=== PATIENT | female | born 1985 | race Two or more races ===

== ENCOUNTER 2018-09-21 17:28 | Emergency (ER) | payer OTHER ==
[~2018-09-21] VITALS: Ht 165.1 cm; Wt 70.3 kg
[2018-09-21] MEDS ORDERED: IBUPROFEN 800 MG TAB PO ONE (18:00)
[2018-09-21 18:33] VITALS: BP 137/80
[2018-09-21] MEDS ORDERED: ACETAMINOPHEN 500 MG TAB PO ONE (19:00)
== END 2018-09-21 20:16 | disposition home or self-care (01) ==
LOC: ER 17:37
DX: S63.502A Unspecified sprain of left wrist, initial encounter (principal); V43.52XA Car driver injured in collision with other type car in traffic accident, initial encounter; Y93.89 Activity, other specified; Y92.488 Other paved roadways as the place of occurrence of the external cause; Y99.8 Other external cause status
CPT/HCPCS: 73090; 81025

== ENCOUNTER 2019-01-10 18:29 | Emergency (ER) | payer OTHER ==
[~2019-01-10] VITALS: Ht 165.1 cm; Wt 70.3 kg
[2019-01-10 19:48] LABS: Basophils # (auto) 0.1 uL; Basophils % (auto) 0.7 % (0.0-2.0); Eosinophils # (auto) 0.1 uL; Eosinophils % (auto) 1.3 % (0.0-7.0); Hematocrit 43.5 % (36.0-46.0); Hemoglobin 14.6 g/dL (12.2-16.2); Lymphocytes # (auto) 2.4 uL; Lymphocytes % (auto) 21.9 % (10.0-50.0); Mean Corpuscular Hemoglobin 29.2 pg (28.0-32.0); Mean Corpuscular Hgb Conc. 33.6 g/dL (32.0-36.0); Mean Corpuscular Volume 86.9 fL (80.0-100.0); Monocytes # (auto) 0.8 uL; Monocytes % (auto) 6.9 % (0.0-12.0); Neutrophils # (auto) 7.7 uL; Neutrophils % (auto) 69.2 % (37.0-80.0); Platelet Count (auto) 246 10^3/uL (140-450); Red Cell Distribution Width 12.9 % (11.8-14.3); White Blood Cell 11.2 10^3/uL (4.4-10.8)
[2019-01-10 20:04] LABS: Albumin 3.9 g/dL (3.4-5.0); Calcium 8.7 mg/dL (8.5-10.1); Potassium 4.1 mmol/L (3.5-5.1)
[2019-01-10 20:06] LABS: BUN/Creatinine Ratio 20.7
[2019-01-10 20:08] LABS: Bilirubin, Total 0.5 mg/dL (0.2-1.0); Total Protein 7.5 g/dL (6.4-8.2)
[2019-01-10 20:27] LABS: INR 1.01 (0.9-1.15); Partial Thromboplastin Time 25.9 sec (23.78-33.04); Prothrombin Time 10.8 sec (9.27-12.13)
[2019-01-11] VITALS: BP 136/88
== END 2019-01-11 00:25 | disposition home or self-care (01) ==
LOC: ER 18:36
DX: M79.662 Pain in left lower leg (principal); M60.9 Myositis, unspecified; Z85.3 Personal history of malignant neoplasm of breast
CPT/HCPCS: 36415; 80053; 85025; 85610; 85730; 93971